=== PATIENT | female | born 1965 | race African-American/Black ===

== ENCOUNTER 2017-05-21 09:52 | Emergency (ER) | payer MEDICAID ==
[~2017-05-21] VITALS: Ht 167.6 cm; Wt 61.0 kg
[~2017-05-21 09:52] MED LIST: QUET50TA PO; SERT25TA PO
[2017-05-21 10:50] LABS: BASOPHILS % 0.3 % (0.0-2.0); EOSINOPHILS % 0.4 % (0.0-5.0); HEMATOCRIT. 37.5 % (36.0-48.0); HEMOGLOBIN. 12.3 g/dL (12.0-16.0); LYMPHOCYTES % 17.6 % (20.0-50.0); MEAN CORPUSCULAR HEMOGLOBIN 27.6 pg (28.0-32.0); MEAN CORPUSCULAR VOLUME 84.3 fL (81.0-99.0); MEAN PLATELET VOLUME 7.2 fl (7.4-10.4); NEUTROPHILS % 74.7 % (40.0-76.0); PLATELET 304 x1000/uL (130-400); RED BLOOD CELL COUNT 4.45 mill/uL (4.2-5.4); RED CELL DISTRIBUTION WIDTH 14.9 % (11.6-14.6)
[2017-05-21 10:51] LABS: CLARITY URINE CLEAR (CLEAR); COLOR URINE YELLOW (YELLOW); KETONES URINE NEGATIVE (NEGATIVE); LEUKOCYTE ESTERASE URINE NEGATIVE (NEGATIVE); NITRITE URINE NEGATIVE (NEGATIVE); OCCULT BLOOD URINE NEGATIVE (NEGATIVE); PROTEIN URINE NEGATIVE (NEGATIVE); SPECIFIC GRAVITY URINE 1.026 (1.005-1.030); UROBILINOGEN URINE 0.2 E.U./dL (0.2-1.0)
[2017-05-21 11:01] LABS: CHLORIDE 107 mEq/L (98-107)
[2017-05-21 11:06] LABS: ETHANOL BLOOD < 10 mg/dL
[2017-05-21 11:25] LABS: *AMPHETAMINES SCREEN URINE NEGATIVE (NEGATIVE); *BARBITURATES SCREEN URINE NEGATIVE (NEGATIVE)
[2017-05-21 11:27] LABS: *BENZODIAZEPINES SCREEN URINE NEGATIVE (NEGATIVE); *COCAINE SCREEN URINE PRESUMTIVE POSITIVE (NEGATIVE); CANNABINOID URINE SCREEN NEGATIVE (NEGATIVE); METHADONE URINE SCREEN NEGATIVE (NEGATIVE); OPIATES URINE SCREEN NEGATIVE (NEGATIVE); PHENCYCLIDINE URINE SCREEN NEGATIVE (NEGATIVE)
[2017-05-21 11:37] LABS: HCG SCREEN NEGATIVE
[2017-05-22] MEDS ORDERED: IBUPROFEN 600MG TABLET PO ONE (06:00)
[2017-05-22 07:00] VITALS: BP 109/69
== END 2017-05-22 10:00 | disposition home or self-care (01) ==
LOC: ER 10:39
DX: R45.851 Suicidal ideations (principal); E86.0 Dehydration; F14.10 Cocaine abuse, uncomplicated; F20.9 Schizophrenia, unspecified; F31.9 Bipolar disorder, unspecified; F17.200 Nicotine dependence, unspecified, uncomplicated; Z59.0 Homelessness
CPT/HCPCS: 36415; 80053; 80305; 81003; 84703; 85025; 99284; G0482; Z7610; 81025; 99285

== ENCOUNTER 2018-07-23 14:32 | Emergency (ER) | payer MEDICAID ==
[~2018-07-23] VITALS: Ht 167.6 cm; Wt 70.0 kg
[2018-07-23 15:21] LABS: CHLORIDE 111 mEq/L (98-107)
[2018-07-23 15:25] LABS: ETHANOL BLOOD < 10 mg/dL
[2018-07-23 15:27] LABS: BASOPHILS % 0.5 % (0.0-2.0); EOSINOPHILS % 2.3 % (0.0-5.0); HEMATOCRIT. 33.2 % (36.0-48.0); HEMOGLOBIN. 11.1 g/dL (12.0-16.0); LYMPHOCYTES % 33.6 % (20.0-50.0); MEAN CORPUSCULAR HEMOGLOBIN 27.9 pg (28.0-32.0); MEAN CORPUSCULAR VOLUME 83.6 fL (81.0-99.0); MEAN PLATELET VOLUME 7.4 fl (7.4-10.4); MONOCYTES % 9.2 % (2.0-8.0); NEUTROPHILS % 54.4 % (40.0-76.0); PLATELET 320 x1000/uL (130-400); RED BLOOD CELL COUNT 3.98 mill/uL (4.2-5.4); RED CELL DISTRIBUTION WIDTH 15.4 % (11.6-14.6)
[2018-07-23 15:32] LABS: CLARITY URINE CLEAR (CLEAR); COLOR URINE YELLOW (YELLOW); KETONES URINE TRACE (NEGATIVE); LEUKOCYTE ESTERASE URINE 1+ (NEGATIVE); NITRITE URINE NEGATIVE (NEGATIVE); OCCULT BLOOD URINE NEGATIVE (NEGATIVE); PH URINE 6.5 (4.5-8.0); PROTEIN URINE NEGATIVE (NEGATIVE); SPECIFIC GRAVITY URINE 1.023 (1.005-1.030)
[2018-07-23 15:45] LABS: *AMPHETAMINES SCREEN URINE NEGATIVE (NEGATIVE)
[2018-07-23 15:46] LABS: *BARBITURATES SCREEN URINE NEGATIVE (NEGATIVE); *BENZODIAZEPINES SCREEN URINE NEGATIVE (NEGATIVE); CANNABINOID URINE SCREEN NEGATIVE (NEGATIVE); METHADONE URINE SCREEN NEGATIVE (NEGATIVE); OPIATES URINE SCREEN NEGATIVE (NEGATIVE); PHENCYCLIDINE URINE SCREEN NEGATIVE (NEGATIVE)
[2018-07-23 15:47] LABS: *COCAINE SCREEN URINE PRESUMTIVE POSITIVE (NEGATIVE)
[2018-07-24 12:30] VITALS: BP 131/85
== END 2018-07-24 19:03 ==
LOC: ER 14:32
DX: R45.851 Suicidal ideations (principal); F14.10 Cocaine abuse, uncomplicated; E88.09 Other disorders of plasma-protein metabolism, not elsewhere classified; F32.9 Major depressive disorder, single episode, unspecified; D64.9 Anemia, unspecified; F20.9 Schizophrenia, unspecified; R56.9 Unspecified convulsions; F31.9 Bipolar disorder, unspecified; Z79.899 Other long term (current) drug therapy
CPT/HCPCS: 36415; 80305; 80320; 99285; G0480

== ENCOUNTER 2019-01-10 07:44 | Inpatient (IN) | payer MEDICAID ==
[~2019-01-10] VITALS: Ht 160 cm; Wt 57.2 kg
[2019-01-10] MEDS ORDERED: MORPHINE SULFATE 4 MG/ML CPJ (NOT FOR IM USE) IV ONE (08:30)
[2019-01-10] MEDS ORDERED: ONDANSETRON HCL 4MG/2ML INJ IV ONE (08:30)
[2019-01-10] MEDS ORDERED: SODIUM CHLORIDE 0.9% 1000ML BAG (SEPSIS BOLUS) IV ONE (08:30)
[2019-01-10 08:46] LABS: CHLORIDE 103 mEq/L (98-107)
[2019-01-10 08:56] LABS: HEMATOCRIT. 33.2 % (36.0-48.0); MEAN CORPUSCULAR HEMOGLOBIN 27.4 pg (28.0-32.0); MEAN CORPUSCULAR VOLUME 82.8 fL (81.0-99.0); MEAN PLATELET VOLUME 7.4 fl (7.4-10.4); PLATELET 343 x1000/uL (130-400); RED BLOOD CELL COUNT 4.01 mill/uL (4.2-5.4)
[2019-01-10 09:18] LABS: PROTHROMBIN TIME 10.5 sec (9.6-11.0)
[2019-01-10] MEDS ORDERED: METRONIDAZOLE 500 MG PREMIX 100 ML IV ONE (10:00)
[2019-01-10] MEDS ORDERED: CEFTRIAXONE 1 G PREMIX 50 ML IV ONE (10:00)
[2019-01-10 10:01] LABS: PLATELET ESTIMATE NORMAL
[2019-01-10] MEDS ORDERED: SODIUM CHLORIDE 0.9% 1,000 ML IV ONE (12:45)
[2019-01-10] MEDS ORDERED: ACETAMINOPHEN 500MG TABLET PO SCH (12:45)
[2019-01-10] MEDS ORDERED: ACETAMINOPHEN 325MG TABLET PO PRN (13:30)
[2019-01-10] MEDS: SODIUM CHLORIDE 0.9% 1,000 ML IV SCH (13:30)
[2019-01-10] MEDS ORDERED: ONDANSETRON HCL 4MG/2ML INJ IV PRN (13:30)
[2019-01-10] MEDS ORDERED: MORPHINE SULFATE 2 MG/ML CPJ (NOT FOR IM USE) IV PRN (13:30)
[2019-01-10 14:28] VITALS: BP 81/40
[2019-01-10] MEDS ORDERED: SODIUM CHLORIDE 0.9% 1,000 ML IV SCH (14:45)
[2019-01-10] MEDS: METRONIDAZOLE 500 MG PREMIX 100 ML IV SCH ×2 (15:30→21:52)
[2019-01-10] MEDS: LEVOFLOXACIN 500MG PREMIX 100 ML IV SCH (16:00)
[2019-01-10 16:30] VITALS: BP 85/49
[2019-01-10 20:00] VITALS: BP 101/52
[2019-01-11] VITALS: BP 93/60
[2019-01-11 04:00] VITALS: BP 90/53
[2019-01-11] MEDS: SODIUM CHLORIDE 0.9% 1,000 ML IV SCH (05:46)
[2019-01-11] MEDS: METRONIDAZOLE 500 MG PREMIX 100 ML IV SCH ×2 (05:47→15:07)
[2019-01-11 06:13] LABS: BASOPHILS % 0.2 % (0.0-2.0); HEMATOCRIT. 31.2 % (36.0-48.0); HEMOGLOBIN. 10.3 g/dL (12.0-16.0); LYMPHOCYTES % 11.9 % (20.0-50.0); MEAN CORPUSCULAR HEMOGLOBIN 27.4 pg (28.0-32.0); MEAN CORPUSCULAR VOLUME 83.1 fL (81.0-99.0); MEAN PLATELET VOLUME 7.7 fl (7.4-10.4); MONOCYTES % 4.2 % (2.0-8.0); NEUTROPHILS % 83.7 % (40.0-76.0); PLATELET 263 x1000/uL (130-400); RED BLOOD CELL COUNT 3.75 mill/uL (4.2-5.4); RED CELL DISTRIBUTION WIDTH 16.6 % (11.6-14.6)
[2019-01-11 06:19] LABS: CHLORIDE 107 mEq/L (98-107)
[2019-01-11 07:50] LABS: CLARITY URINE CLEAR (CLEAR); COLOR URINE YELLOW (YELLOW); KETONES URINE NEGATIVE (NEGATIVE); LEUKOCYTE ESTERASE URINE 1+ (NEGATIVE); NITRITE URINE NEGATIVE (NEGATIVE); OCCULT BLOOD URINE TRACE (NEGATIVE); PH URINE 5.5 (4.5-8.0); PROTEIN URINE NEGATIVE (NEGATIVE); SPECIFIC GRAVITY URINE 1.005 (1.005-1.030); UROBILINOGEN URINE 0.2 E.U./dL (0.2-1.0)
[2019-01-11 08:00] VITALS: BP 93/59
[2019-01-11 08:04] LABS: *AMPHETAMINES SCREEN URINE NEGATIVE (NEGATIVE); *BARBITURATES SCREEN URINE NEGATIVE (NEGATIVE); *BENZODIAZEPINES SCREEN URINE NEGATIVE (NEGATIVE); *COCAINE SCREEN URINE PRESUMTIVE POSITIVE (NEGATIVE)
[2019-01-11 08:05] LABS: CANNABINOID URINE SCREEN NEGATIVE (NEGATIVE); METHADONE URINE SCREEN NEGATIVE (NEGATIVE); OPIATES URINE SCREEN PRESUMTIVE POSITIVE (NEGATIVE); PHENCYCLIDINE URINE SCREEN NEGATIVE (NEGATIVE)
[2019-01-11 12:00] VITALS: BP 86/53
[2019-01-11] MEDS ORDERED: METR500T MT (13:15)
[2019-01-11] MEDS ORDERED: LEVO500T2 MT (13:15)
[2019-01-11 16:00] VITALS: BP 96/68
[2019-01-11] MEDS: LEVOFLOXACIN 500MG PREMIX 100 ML IV SCH (16:09)
[2019-01-11 20:00] VITALS: BP 90/60
[2019-01-11] MEDS: METRONIDAZOLE 500MG TABLET PO SCH (22:17)
[2019-01-12] VITALS: BP 90/56
[2019-01-12 04:00] VITALS: BP 102/63
[2019-01-12] MEDS: SODIUM CHLORIDE 0.9% 1,000 ML IV SCH ×2 (05:50→05:52)
[2019-01-12] MEDS: METRONIDAZOLE 500MG TABLET PO SCH (05:51)
[2019-01-12 08:00] VITALS: BP 97/50
[2019-01-12 11:28] VITALS: BP 102/62
[2019-01-12] MEDS ORDERED: LEVOFLOXACIN 500MG TABLET PO SCH (17:00)
[2019-01-13 10:10] LABS: SACCHAROMYCES CEREVISIAE IGG <20.0 Units (0.0-24.9); SACCHAROMYCES CEREVISIAE IGM <20.0 Units (0.0-24.9)
[2019-01-13 14:07] LABS: ATYPICAL pANCA <1:20 titer (Neg:<1:20)
== END 2019-01-12 12:30 | disposition left against medical advice (07) | DRG 720 ==
LOC: ER 07:44 → 7WST 12:44 → EDBEDREQ 12:46 → EDBEDREQTM 12:46 → ENRESERV 13:09
PROVIDERS: ADMIT Internal Medicine; ATTEND Internal Medicine
DX: A41.9 Sepsis, unspecified organism (principal); E87.1 Hypo-osmolality and hyponatremia; F20.9 Schizophrenia, unspecified; F31.9 Bipolar disorder, unspecified; F14.10 Cocaine abuse, uncomplicated; G40.909 Epilepsy, unspecified, not intractable, without status epilepticus; Z53.29 Procedure and treatment not carried out because of patient's decision for other reasons; K52.9 Noninfective gastroenteritis and colitis, unspecified; K40.90 Unilateral inguinal hernia, without obstruction or gangrene, not specified as recurrent; N39.0 Urinary tract infection, site not specified; R65.20 Severe sepsis without septic shock; Z71.51 Drug abuse counseling and surveillance of drug abuser
CPT/HCPCS: 36415; 71045; 74176; 80048; 80305; 81003; 83605; 84145; 84484; 86256; 86671; 87804; 93005; 96361; 96365; 96367; 96375; 99291; C1893; J0696; J1956; J2270; J2405; J3490; J7030; J7040

== ENCOUNTER 2019-01-25 07:24 | Emergency (ER) | payer MEDICAID ==
[~2019-01-25] VITALS: Ht 165.1 cm; Wt 57.0 kg
[~2019-01-25 07:24] MED LIST changes: +LEVO500T2 MT; +METR500T MT
[2019-01-25 09:05] LABS: BASOPHILS % 0.4 % (0.0-2.0); EOSINOPHILS % 1.2 % (0.0-5.0); HEMATOCRIT. 33.8 % (36.0-48.0); HEMOGLOBIN. 11.2 g/dL (12.0-16.0); LYMPHOCYTES % 15.8 % (20.0-50.0); MEAN CORPUSCULAR HEMOGLOBIN 27.7 pg (28.0-32.0); MEAN CORPUSCULAR VOLUME 83.3 fL (81.0-99.0); MEAN PLATELET VOLUME 6.9 fl (7.4-10.4); MONOCYTES % 4.6 % (2.0-8.0); PLATELET 365 x1000/uL (130-400); RED BLOOD CELL COUNT 4.06 mill/uL (4.2-5.4); RED CELL DISTRIBUTION WIDTH 17.1 % (11.6-14.6)
[2019-01-25 09:12] LABS: CHLORIDE 114 mEq/L (98-107)
[2019-01-25 09:16] LABS: ETHANOL BLOOD < 10 mg/dL
[2019-01-25 11:47] LABS: CLARITY URINE CLEAR (CLEAR); COLOR URINE YELLOW (YELLOW); KETONES URINE NEGATIVE (NEGATIVE); LEUKOCYTE ESTERASE URINE NEGATIVE (NEGATIVE); NITRITE URINE NEGATIVE (NEGATIVE); OCCULT BLOOD URINE NEGATIVE (NEGATIVE); PROTEIN URINE NEGATIVE (NEGATIVE); SPECIFIC GRAVITY URINE 1.023 (1.005-1.030); UROBILINOGEN URINE 0.2 E.U./dL (0.2-1.0)
[2019-01-25 12:15] LABS: *AMPHETAMINES SCREEN URINE NEGATIVE (NEGATIVE); *BARBITURATES SCREEN URINE NEGATIVE (NEGATIVE); *BENZODIAZEPINES SCREEN URINE NEGATIVE (NEGATIVE)
[2019-01-25 12:16] LABS: *COCAINE SCREEN URINE PRESUMTIVE POSITIVE (NEGATIVE); METHADONE URINE SCREEN NEGATIVE (NEGATIVE); OPIATES URINE SCREEN NEGATIVE (NEGATIVE); PHENCYCLIDINE URINE SCREEN NEGATIVE (NEGATIVE)
[2019-01-25 12:17] LABS: CANNABINOID URINE SCREEN NEGATIVE (NEGATIVE)
[2019-01-25] MEDS ORDERED: HYDROCODONE/ACETAMINOPHEN 5/325MG TABLET PO STA (13:24)
[2019-01-25] MEDS ORDERED: QUETIAPINE FUMARATE 50MG TABLET PO SCH (23:00)
[2019-01-25] MEDS ORDERED: LEVETIRACETAM 500MG/5ML CUP PO ONE (23:00)
[2019-01-26] MEDS: SERTRALINE HCL 25MG TABLET PO SCH ×2 (01:04→09:11)
[2019-01-26] MEDS: LEVETIRACETAM 500MG TABLET PO SCH ×2 (09:11→21:21)
[2019-01-26] MEDS: QUETIAPINE FUMARATE 50MG TABLET PO SCH (21:22)
[2019-01-27] MEDS: SERTRALINE HCL 25MG TABLET PO SCH (09:46)
[2019-01-27] MEDS: LEVETIRACETAM 500MG TABLET PO SCH ×2 (09:46→21:12)
[2019-01-27] MEDS: QUETIAPINE FUMARATE 50MG TABLET PO SCH (21:12)
[2019-01-28 14:00] VITALS: BP 110/70
== END 2019-01-28 14:00 | disposition home or self-care (01) ==
LOC: ER 07:24
DX: R45.851 Suicidal ideations (principal); F14.10 Cocaine abuse, uncomplicated; G40.909 Epilepsy, unspecified, not intractable, without status epilepticus; F31.9 Bipolar disorder, unspecified; F20.9 Schizophrenia, unspecified; Z79.899 Other long term (current) drug therapy
CPT/HCPCS: 36415; 80048; 80305; 80307; 80320; 80329; 81003; 85025; 99284; Z7610; G0480

== ENCOUNTER 2019-05-05 14:25 | Emergency (ER) | payer MEDICAID ==
[~2019-05-05] VITALS: Ht 157.5 cm; Wt 62.0 kg
[2019-05-05 14:35] VITALS: BP 110/76
[2019-05-05] MEDS ORDERED: ONDANSETRON 4MG ODT PO ONE (18:00)
[2019-05-05] MEDS ORDERED: HYDROCODONE/ACETAMINOPHEN 5/325MG TABLET PO ONE (18:00)
[2019-05-05 19:12] LABS: CLARITY URINE CLEAR (CLEAR); COLOR URINE YELLOW (YELLOW); KETONES URINE NEGATIVE (NEGATIVE); LEUKOCYTE ESTERASE URINE NEGATIVE (NEGATIVE); NITRITE URINE NEGATIVE (NEGATIVE); OCCULT BLOOD URINE NEGATIVE (NEGATIVE); PROTEIN URINE TRACE (NEGATIVE); UROBILINOGEN URINE 0.2 E.U./dL (0.2-1.0)
== END 2019-05-05 19:29 | disposition home or self-care (01) ==
LOC: ER 14:32
DX: R10.84 Generalized abdominal pain (principal); R11.2 Nausea with vomiting, unspecified; R19.7 Diarrhea, unspecified; G40.909 Epilepsy, unspecified, not intractable, without status epilepticus; K58.9 Irritable bowel syndrome, unspecified; F99 Mental disorder, not otherwise specified; F14.10 Cocaine abuse, uncomplicated
CPT/HCPCS: 81003; 81025; 99283; Q0162

== ENCOUNTER 2019-05-06 08:23 | Emergency (ER) | payer MEDICAID ==
[~2019-05-06] VITALS: Ht 162.6 cm; Wt 60.0 kg
[2019-05-06 10:05] LABS: BASOPHILS % 0.4 % (0.0-2.0); EOSINOPHILS % 0.6 % (0.0-5.0); HEMATOCRIT. 40.9 % (36.0-48.0); HEMOGLOBIN. 13.6 g/dL (12.0-16.0); LYMPHOCYTES % 23.5 % (20.0-50.0); MEAN CORPUSCULAR HEMOGLOBIN 27.8 pg (28.0-32.0); MEAN CORPUSCULAR VOLUME 83.4 fL (81.0-99.0); MEAN PLATELET VOLUME 7.2 fl (7.4-10.4); MONOCYTES % 8.7 % (2.0-8.0); NEUTROPHILS % 66.8 % (40.0-76.0); PLATELET 282 x1000/uL (130-400); RED CELL DISTRIBUTION WIDTH 15.5 % (11.6-14.6)
[2019-05-06 10:13] LABS: CHLORIDE 109 mEq/L (98-107)
[2019-05-06 10:17] LABS: ETHANOL BLOOD < 10 mg/dL
[2019-05-06 11:44] LABS: CLARITY URINE CLEAR (CLEAR); COLOR URINE YELLOW (YELLOW); KETONES URINE NEGATIVE (NEGATIVE); LEUKOCYTE ESTERASE URINE NEGATIVE (NEGATIVE); NITRITE URINE NEGATIVE (NEGATIVE); OCCULT BLOOD URINE NEGATIVE (NEGATIVE); PROTEIN URINE NEGATIVE (NEGATIVE); SPECIFIC GRAVITY URINE 1.036 (1.005-1.030); UROBILINOGEN URINE 0.2 E.U./dL (0.2-1.0)
[2019-05-06 11:59] LABS: *AMPHETAMINES SCREEN URINE NEGATIVE (NEGATIVE); *BARBITURATES SCREEN URINE NEGATIVE (NEGATIVE)
[2019-05-06 12:00] LABS: *BENZODIAZEPINES SCREEN URINE NEGATIVE (NEGATIVE); *COCAINE SCREEN URINE PRESUMTIVE POSITIVE (NEGATIVE); CANNABINOID URINE SCREEN NEGATIVE (NEGATIVE); METHADONE URINE SCREEN NEGATIVE (NEGATIVE); OPIATES URINE SCREEN PRESUMTIVE POSITIVE (NEGATIVE); PHENCYCLIDINE URINE SCREEN NEGATIVE (NEGATIVE)
[2019-05-08] MEDS: LORAZEPAM 2MG/ML CPJ IM ONE (00:01)
[2019-05-08] MEDS: OLANZAPINE 10 MG/VIAL IM ONE (00:03)
[2019-05-08] MEDS: LORAZEPAM 1MG TABLET PO NR (01:08)
[2019-05-08] MEDS: OLANZAPINE 10MG TABLET PO NR (01:09)
[2019-05-08 16:37] VITALS: BP 97/52
== END 2019-05-08 16:30 | disposition home or self-care (01) ==
LOC: ER 08:23
DX: R45.851 Suicidal ideations (principal); F20.9 Schizophrenia, unspecified; F14.10 Cocaine abuse, uncomplicated; F41.9 Anxiety disorder, unspecified; F32.9 Major depressive disorder, single episode, unspecified; Z79.899 Other long term (current) drug therapy
CPT/HCPCS: 36415; 80053; 80305; 80307; 80320; 80329; 81003; 85025; 99285; G0480

== ENCOUNTER 2021-08-21 13:20 | Emergency (ER) | payer MEDICAID ==
[~2021-08-21] VITALS: Ht 165.1 cm; Wt 70.0 kg
[2021-08-21] MEDS ORDERED: ARIPIPRAZOLE 5MG TABLET PO ONE (14:30)
[2021-08-21] MEDS ORDERED: LEVETIRACETAM 500MG TABLET PO ONE (14:30)
[2021-08-21] MEDS ORDERED: IBUPROFEN 400MG TABLET PO ONE (14:30)
[2021-08-21 16:05] LABS: BASOPHILS % 0.4 % (0.0-2.0); EOSINOPHILS % 0.5 % (0.0-5.0); HEMATOCRIT. 33.7 % (36.0-48.0); HEMOGLOBIN. 11.1 g/dL (12.0-16.0); LYMPHOCYTES % 21.3 % (20.0-50.0); MEAN CORPUSCULAR HEMOGLOBIN 26.5 pg (28.0-32.0); MEAN CORPUSCULAR VOLUME 80.7 fL (81.0-99.0); MEAN PLATELET VOLUME 7.2 fl (7.4-10.4); MONOCYTES % 3.9 % (2.0-8.0); NEUTROPHILS % 73.9 % (40.0-76.0); PLATELET 333 x1000/uL (130-400); RED BLOOD CELL COUNT 4.18 mill/uL (4.2-5.4); RED CELL DISTRIBUTION WIDTH 16.5 % (11.6-14.6)
[2021-08-21 16:11] LABS: CHLORIDE 110 mEq/L (98-107)
[2021-08-21 16:18] LABS: ETHANOL BLOOD < 10 mg/dL
[2021-08-21] MEDS ORDERED: IBUPROFEN 400MG TABLET PO SCH (19:30)
[2021-08-21] MEDS ORDERED: ARIPIPRAZOLE 5MG TABLET PO SCH (19:30)
[2021-08-21] MEDS ORDERED: LEVETIRACETAM 500MG TABLET PO SCH (19:45)
[2021-08-21] MEDS: SERTRALINE HCL 50MG TABLET PO SCH (21:08)
[2021-08-21 23:28] LABS: CLARITY URINE CLEAR (CLEAR); COLOR URINE YELLOW (YELLOW); KETONES URINE NEGATIVE (NEGATIVE); LEUKOCYTE ESTERASE URINE 2+ (NEGATIVE); NITRITE URINE NEGATIVE (NEGATIVE); OCCULT BLOOD URINE NEGATIVE (NEGATIVE); PH URINE 6.5 (4.5-8.0); PROTEIN URINE NEGATIVE (NEGATIVE); SPECIFIC GRAVITY URINE 1.022 (1.005-1.030); UROBILINOGEN URINE 0.2 E.U./dL (0.2-1.0)
[2021-08-21 23:56] LABS: *AMPHETAMINES SCREEN URINE NEGATIVE (NEGATIVE); *BARBITURATES SCREEN URINE NEGATIVE (NEGATIVE); *BENZODIAZEPINES SCREEN URINE NEGATIVE (NEGATIVE); *COCAINE SCREEN URINE PRESUMTIVE POSITIVE (NEGATIVE); CANNABINOID URINE SCREEN NEGATIVE (NEGATIVE); METHADONE URINE SCREEN NEGATIVE (NEGATIVE); OPIATES URINE SCREEN NEGATIVE (NEGATIVE); PHENCYCLIDINE URINE SCREEN NEGATIVE (NEGATIVE)
[2021-08-22] MEDS: SERTRALINE HCL 50MG TABLET PO SCH (10:38)
[2021-08-22 17:46] VITALS: BP 118/76
== END 2021-08-22 18:12 ==
LOC: ER 13:33
DX: F20.9 Schizophrenia, unspecified (principal); R45.851 Suicidal ideations; R45.850 Homicidal ideations; F31.9 Bipolar disorder, unspecified; M25.562 Pain in left knee; M25.561 Pain in right knee; F14.10 Cocaine abuse, uncomplicated; G40.909 Epilepsy, unspecified, not intractable, without status epilepticus; Z20.822 Contact with and (suspected) exposure to COVID-19; Z75.1 Person awaiting admission to adequate facility elsewhere; Z87.828 Personal history of other (healed) physical injury and trauma
CPT/HCPCS: 36415; 73560; 80053; 80305; 80307; 80320; 80329; 81003; 85025; 99285; C9803; U0003; U0005; G0480

== ENCOUNTER 2023-06-28 12:05 | Emergency (ER) | payer MEDICAID, OTHER ==
[~2023-06-28] VITALS: Ht 165.1 cm; Wt 60.0 kg
[2023-06-28 12:07] VITALS: TEMP 97.4; O2SAT 98
[2023-06-28] MEDS: KETOROLAC 30MG/ML VIAL IM ONE (12:45)
[2023-06-28] MEDS ORDERED: ACET-2708 MT (13:46)
[2023-06-28 16:12] VITALS: BP 130/80; PULSE 75; RESP 20
== END 2023-06-28 16:28 | disposition home or self-care (01) ==
LOC: ER 12:21
DX: M25.561 Pain in right knee (principal); F41.9 Anxiety disorder, unspecified; F32.9 Major depressive disorder, single episode, unspecified; F20.9 Schizophrenia, unspecified; R56.9 Unspecified convulsions; F14.10 Cocaine abuse, uncomplicated
CPT/HCPCS: 99283; 73562; 96372; J1885